=== PATIENT | male | born 1990 | race Caucasian/White ===

== ENCOUNTER 2018-05-14 02:30 | Emergency (ER) | payer MEDICAID, SELFPAY ==
[2018-05-14 02:40] VITALS: BP 136/83; PULSE 85; RESP 18; TEMP 36.6; O2SAT 97; BMI 24.4
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
[2018-05-14 03:58] VITALS: BP 131/78; PULSE 82; RESP 18; O2SAT 97
== END 2018-05-14 04:01 | disposition home or self-care (01) ==
PROVIDERS: Emergency Provider Emergency Medicine; PCP Anesthesiology
DX: S16.1XXA Strain of muscle, fascia and tendon at neck level, initial encounter (principal); S06.0X9A Concussion with loss of consciousness of unspecified duration, initial encounter; Y09 Assault by unspecified means
CPT/HCPCS: 70450; 72125; 99282; 99284